=== PATIENT | female | born 1995 | race Caucasian/White ===

== ENCOUNTER 2023-05-15 10:26 | Outpatient (CLI) | payer OTHER, SELFPAY | END 2023-05-15 10:27 | disposition home or self-care (01) | PROVIDERS: PCP Family Medicine; Visit Provider Family Medicine | DX: E66.09 Other obesity due to excess calories (principal); Z13.6 Encounter for screening for cardiovascular disorders | CPT/HCPCS: 80048; 80061 ==

== ENCOUNTER 2023-07-09 17:20 | Outpatient (CLI) | payer OTHER, SELFPAY | END 2023-07-09 17:21 | disposition home or self-care (01) | LOC: NFLDUCREF 17:21 | PROVIDERS: PCP Family Medicine; Visit Provider Physician Assistant | DX: I10 Essential (primary) hypertension (principal); R21 Rash and other nonspecific skin eruption | CPT/HCPCS: 86140 ==

== ENCOUNTER 2023-07-24 12:05 | Outpatient (CLI) | payer OTHER, SELFPAY | END 2023-07-24 12:06 | disposition home or self-care (01) | LOC: FBOREF 12:06 | PROVIDERS: PCP Family Medicine; Visit Provider Family Medicine | DX: R21 Rash and other nonspecific skin eruption (principal) | CPT/HCPCS: 86039 ==

== ENCOUNTER 2024-04-15 15:39 | Outpatient (CLI) | payer OTHER, SELFPAY ==
--- NOTE | 2024-04-15 16:00 | CRLHL7_ITS ---
For Patients: As a result of the Century Cures Act, medical imaging exams and procedure reports are released immediately into your electronic medical record. You may view this report before your referring provider. If you have questions, please contact your health care provider. CLINICAL HISTORY: Menorrhagia TECHNIQUE: Real time, herbert scale images were acquired of the pelvis using a transabdominal and transvaginal approach. Color Doppler analysis was performed of the ovaries. FINDINGS: Uterus measures 7.4 x 4.3 x 5.2 centimeters endometrium measures 8 millimeters. Right ovary measures 3.8 x 2.5 x 2.9 centimeters left ovary measures 4.3 x 2 centimeters small hyperechoic area in the right ovary measuring 1.1 x 0.8 x 1 centimeters right ovarian probably a corpus luteum cyst measuring 2.3 x 1.5 x 1.9 centimeters. Small free fluid in the pelvis normal blood flow bilaterally. IMPRESSION: 1. 8 millimeter endometrium. 2. Small hyperechoic area in the right ovary as well as a probable corpus luteum cyst. Small amount of free fluid in the pelvis. Follow-up ultrasound could be considered in 8-12 weeks. Dictated by Joanne Vasques MD @ 04/16/2024 5:39:27 AM (Electronically Signed)
== END 2024-04-15 15:40 | disposition home or self-care (01) ==
PROVIDERS: PCP Family Medicine; Visit Provider Obstetrics & Gynecology
DX: N92.0 Excessive and frequent menstruation with regular cycle (principal); R93.89 Abnormal findings on diagnostic imaging of other specified body structures
CPT/HCPCS: 76830; 76856

== ENCOUNTER 2024-04-29 10:12 | Outpatient (CLI) | payer OTHER, SELFPAY | END 2024-04-29 10:13 | disposition home or self-care (01) | LOC: NFLDREF 04-30 10:59 | PROVIDERS: PCP Family Medicine; Referring Provider Family Medicine; Visit Provider Obstetrics & Gynecology | DX: R33.9 Retention of urine, unspecified (principal) | CPT/HCPCS: 87086 ==

== ENCOUNTER 2024-05-05 16:06 | Outpatient (CLI) | payer OTHER, SELFPAY | END 2024-05-05 16:07 | disposition home or self-care (01) | LOC: FBOREF 16:06 | PROVIDERS: PCP Family Medicine; Visit Provider Family Medicine | DX: I10 Essential (primary) hypertension (principal); N92.0 Excessive and frequent menstruation with regular cycle | CPT/HCPCS: 80048; 85025 ==

== ENCOUNTER 2024-05-20 07:22 | Day surgery (SDC) | payer OTHER, SELFPAY ==
[2024-05-20] VITALS (22 sets, daily range): BP systolic 93–135; BP diastolic 60–97; PULSE 53–96; RESP 12–18; TEMP 36.1–36.6; O2SAT 95–100
--- NOTE | 2024-05-20 08:06 | W.PM.H&PU ---
History & Physical Update History & Physical Update H&P Reviewed and patient assessed: No changes noted H&P Updates: Patient is currently on Day 3 of her menstrual cycle. Reassured patient this will not change our surgical plan. Reviewed consents with patient and spouse. All questions answered and patient comfortable with proceed with the planned procedures.
[2024-05-20 08:07] LABS: Basophils Absolute Auto 0.03 K/uL (0.00-0.30); Basophils Percent Auto 0.6 % (0.0-3.0); Eosinophils Absolute Auto 0.11 K/uL (0.00-0.50); Eosinophils Percent Auto 2.2 % (0.0-7.0); Hematocrit 40.7 % (33.0-51.0); Hemoglobin* 13.9 gm/dL (12.0-16.0); Lymphocytes Percent Auto 25.5 % (20-44); Mean Corpuscular HGB Conc 34 gm/dL (32-36); Mean Corpuscular Hemoglobin 30 pg (26-34); Mean Corpuscular Volume 87 fL (80-100); Monocytes Percent Auto 9.8 % (0.0-11.0); Neutrophils Absolute Auto 3.16 K/uL (1.7-7.0); Neutrophils Percent Auto 61.9 % (42.0-72.0); Platelet Count* 273 K/uL (140-440); RDW Coefficient of Variation % 13.1 % (11.5-15.5); Red Blood Count 4.67 m/uL (4.00-5.20)
[2024-05-20 08:09] LABS: Slide Review Reflex No
[2024-05-20] MEDS: LACTATED RINGERS 1000 ML 1,000 ML 100 ML IV (08:10)
[2024-05-20] MEDS: SODIUM CHLORIDE 0.9 % (FLUSH) 10 ML SYRINGE IVF (08:10)
[2024-05-20 08:22] LABS: Creatinine* 0.6 mg/dL (0.5-1.5); Estimated Glomerular Filt Rate 124 ml/min
[2024-05-20 08:24] LABS: Ur HCG Qualitative* Negative (Negative)
--- NOTE | 2024-05-20 08:36 | P.NB_ITS ---
Nerve Block Nerve Block Time Seen by Provider: 08:20 Date Seen: 05/20/24 Type of block requested by surgeon for post-operative analgesia: TAP Side: bilateral Time out performed: Yes Verification of patient name: Yes Verification of date of : Yes Site marking: site marked Name of person performing procedure: Bhanu Continuous monitoring Was continuous monitoring of O2 sat, B/P, fitness director, recorded every 15 minutes?: Yes Procedure Checklist: sterile prep, needles and gloves Ultrasound guided. Images saved: Yes Medications given in 5ml increments after negative aspiration: Marcaine %: 0.25 mL: 30 Needle gauge: 20 and Exparel mL: 10 Patient tolerated procedure well: Yes Additional comments: Needle noted between internal oblique and transversus abdominus. Local spread visualized Block Charges Block Charge (with Pro Fee): TAP Bilateral Use of Ultrasound Machine for Block: Yes- US Guidance/pain block
--- NOTE | 2024-05-20 08:37 | W.ANESCHARGE ---
Anesthesia Charges Start Date/Time Anesthesia Start Date: 05/20/24 Anesthesia Start Time: 08:08 Stop Date/Time Anesthesia Stop Date: 05/20/24 Anesthesia Stop Time: 11:40
[2024-05-20] MEDS: CEFAZOLIN 2 GM INJ IVP (08:47)
[2024-05-20] MEDS: BUPIVACAINE 0.25 %/EPI 1:200K 30 ml INJECTION (09:03)
--- NOTE | 2024-05-20 11:46 | W.ANESCHARGE ---
Anesthesia Charges Start Date/Time Anesthesia Start Date: 05/20/24 Anesthesia Start Time: 08:08 Stop Date/Time Anesthesia Stop Date: 05/20/24 Anesthesia Stop Time: 11:40
[2024-05-20] MEDS: fentaNYL 100 MCG/2 ML inj 50 MCG IVP ×3 (11:53→12:12)
--- NOTE | 2024-05-20 12:26 | P.PCNOB_ITS ---
Procedure Type of Hysterectomy: Total Laparoscopic Pre-op/Post-op diagnoses: Pre-Op/Post-Op Diagnoses Operation Date: 05/20/24 08:45 <No data on this case meets the specified criteria> Procedure: Procedures Operation Date: 05/20/24 08:45 Actual Procedure Side Surgeon p Laparoscopic Total Hysterectomy, Bilateral salpingectomy, cystoscopy Bilateral MD hannah Cunningham Transvaginal Tape/ Midurethral Sling Not Applicable Rasheeda Lee MD Automotive Light Mechanic: Lanie Joyner Estimated blood loss (mL): 50 Anesthesia Type: General Complications: none Fluids: crystalloid Urine output (mL): 300 Weight of Uterus: 3.951 oz Specimen: uterus, left tube and right tube Disposition: PACU Narrative: Findings: On exam under anesthesia: Normal appearing external genitalia. Normal appearing cervix. The uterus was anteverted, approximately 5 week size, mobile. No masses palpable. Adnexa without mass or fullness palpable. On laparoscopy: Uterus with possible endometriosis and vascular congestion on posterior uterine wall near the apex of the utero-sacral ligament. Normal appearing bilateral fallopian tubes and ovaries. Posterior cul-de-sac within normal limits. Normal appearing liver. Cystoscopy: The bladder was noted to be without defect and no evidence of injury, any sutures, or mesh in it's entirety. Normal urine flow was noted throu gh both ureteral orifices. Preoperative diagnosis: Bev is a 29-year-old 3 para 3 with heavy menstrual bleeding, dysmenorrhea, and stress urinary incontinence. Postoperative diagnosis: Same and possible endometriosis. Procedure: Bev was taken to the operating room where general anesthetic was found to be adequate. She was placed in the dorsal lithotomy position and an exam under anesthesia was performed with findings stated above. She was then prepped and draped in a normal sterile manner. A Martin catheter was placed. A bivalve speculum was placed in the vaginal canal. A long tenaculum clamp was placed on the anterior lip of the cervix, in the uterus sounded to 7 cm. A medium size VCare uterine manipulator was then placed. The tenaculum clamp and speculum were removed from the cervix. Attention was then turned to performing the laparoscopic portion of the procedure. All incisions were infiltrated with 1% lidocaine with epinephrine prior to incising the skin. A vertical, infraumbilical 5 mm incision was made. A 5 mm trocar was then placed under direct visualization. The abdomen was then insufflated with CO2 gas to a pressure of 15 mm of mercury. Two pelvic ports were then placed approximately 3-4 finger breaths medial to the ischial crests. The trocar in the RLQ = 5mm, LLq = 11mm. A 4th port was made in the patient's right lower quadrant, just superior medial to the left ASIS. A 5 mm Fios Kii port was inserted under direct visualization and without complication. The balloon on each of the 4 ports was inflated, holding each in place. These were placed under direct visualization. Attention was then turned to performing the hysterectomy. The left fallopian tube was grasped, dissected of the left ovary and removed with sequential pedicles using the dissecting, ligasure [place] tip dissecting forceps. Fallopian tube was removed in 2 pieces due to previous transection from tubal ligation. Filmy adhesions were taken down tethering the left fallopian tube to to the pelvic side wall. The left side of the hysterectomy was performed using the ligasure dissecting forceps. The 1st pedicles were starting with the broad ligament that was cauterized and and bisected. In sequence show pedicles were formed to divide the utero-ovarian ligament. Then sequential pedicles were made through the broad ligament. The posterior leaf of the broad ligament was then divided and sequential pedicles carried down to the level of the VCare cup. The anterior leaf of the broad ligament was then divided down to the level of the anterior aspect of the VCare cup and a bladder flap created. Lysis of adhesion performed to take the down the bladder flap. The uterine vessels were then skeletonized. The uterine vessels were then cauterized and divided. Then excess tissue was cleared over the top of the VCare cup using the dissecting forceps. The right salpingectomy and right side of the hysterectomy were then performed in a similar manner. The Ligasure Blazentlab pen with the spatula attachment was then used to perform the colpotomy incising around the VCare cup. The uterus was removed and the fundus placed in the vaginal canal to maintain insufflation. Patient was noted to have a small 1 cm hematoma forming on the left vaginal cuff corner. This was coagulated with the LigaSure. The vaginal cuff was then reapproximated using 2-0 V lock suture in a running manner. All the pedicles and vaginal cuff were then closely visualized and hemostasis obtained with bipolar cautery using the LigaSure dissecting forceps or the Valleylab pen with the spatula. Excellent hemostasis noted. The the uterus was removed from the vaginal canal and sent to pathology. The Martin catheter was briefly removed. A diagnostic cystoscopy was performed using normal saline as the insufflation medium. Findings noted from above. Fluorescein IV was given intraoperatively to visualize the urine more easily. Martin catheter was then replaced. Attention was then returned to the abdomen where hemostasis was verified. The CO2 pressure decreased to 8mmHG and hemostasis verified. The fascia in the LLQ incision was approximated with 0-Vicryl suture using the Domingo Thomasen fascial closure device. This was closed under direct visualization with the laparoscope. 3 trocars were removed under direct visualization. Umbilical port left in place for visualization of the abdomen after the retropubic sling placement. CO2 gas was allowed to escape the infraumbilical port prior to its removal. Attention was then turned towards the midurethral sling placement. The mons was marked in the midline with a marker, extending from just above the clitoral benton in the midline to just above the pubic symphysis. A chuckie was made approximately 2 cm just to the right and to the left of the midline, just over the pubic bone. 30 mL of saline was injected into the retropubic space just behind the pubic bone bilaterally. A weighted speculum was placed in the vagina. The anterior vaginal wall was grasped in the midline 1 cm beneath the urethral meatus with an Allis clamp, and a 2nd Allis clamp was placed at the urethrovesical junction. The intervening anterior vaginal wall was infiltrated with Marcaine with dilute epinephrine, carrying this infiltration to the pubic bone bilaterally. A 1.5 cm incision was made in the anterior vaginal wall, and Metzenbaum scissors were used to dissect the subepithelial tunnel from that incision to the pubic bone, both to the right and the left of the urethra. The Martin catheter was removed. A rigid catheter guide was placed inside a 16 Uzbek catheter, this was inserted into the bladder. Attention was first turned to placement of the right trocar. The trocar was placed within the blue plastic sheath. The trocar tip was inserted through the vaginal subepithelial tunnel on the patient's right side, and slowly guided upwards just behind the posterior aspect of the pubic bone, until the tip of the trocar was guided through the stab incision on the patient's right side. The bladder was deviated to the patient's left with the rigid catheter guide during this time. The plastic sheath was disconnected from the trocar, and the tip was grasped with hemostat. Cystoscopy performed. No injury noted with right sided insertion. Bladder wall intact and trocar easily rolls across. The trocar was then placed within the blue plastic sheath at the other end of the mesh. The trocar tip was inserted through the vaginal subepithelial tunnel on the patient's left side, and slowly guided upward just behind is posterior aspect of the pubic bone, until the tip of the trocar was guided through the stab incision on the patient's left side. The bladder was deviated to the patient's right with the rigid catheter guide during this time. The plastic sheath was again disconnected from the trocar, and the tip was grasped with a hemostat. Cystoscopy was then performed, revealing no injury to the bladder mucosa and the plastic sheaths were found to be freely movable outside the bladder dome. Martin catheter was again inserted to be retained until removal on POD#1. The blue plastic sheaths were pulled through the stab incisions just above the pubic bone, and the mesh was tensioned over a #8 Hegar dilator. The vaginal incision was closed with a running, locked stitch of 2 0 Vicryl. The mesh was trimmed to beneath the skin on her abdomen, and the sites were closed with surgical glue. A final diagnostic laparoscopy was performed to verify that the sling had remained completely pre-peritoneal. Insufflation released and umbilical port r emoved. All skin incisions were re-approximated using 4-0 Monocryl in a running subcuticular manner, Exophin skin adhesive gel and adhesive bandages placed. The patient tolerated this procedure well. Sponge, lap and instrument counts were correct x2 at the end of the procedure and the patient was taken to the recovery area in stable condition. The patient received 2gm IV Ancef prior to the start of the procedure.
[2024-05-20] MEDS: ACETAMINOPHEN 325 MG TABLET 650 MG PO ×2 (14:11→19:22)
[2024-05-20] MEDS: OXYCODONE 5 MG TABLET PO ×3 (15:13→23:29)
[2024-05-20] MEDS: DOCUSATE SODIUM 100 MG CAPSULE PO (17:26)
[2024-05-20] MEDS: IBUPROFEN 600 MG TABLET PO (23:28)
[2024-05-21 03:00] VITALS: BP 105/65; PULSE 69; RESP 16; O2SAT 99
[2024-05-21] MEDS: OXYCODONE 5 MG TABLET PO ×4 (03:21→14:12)
[2024-05-21] MEDS: IBUPROFEN 600 MG TABLET PO ×2 (05:47→10:35)
--- NOTE | 2024-05-21 06:43 | PC.NURSE ---
End of shift report [id number]: Pleasant and cooperative with cares. Pain to low abdomen well managed with current regimen. Lap sites clean, dry and intact. Small amount of bloody, vaginal drainage. Tolerating food and fluids without and nausea or vomiting. Martin catheter backfilled, patient did not tolerate full amount, voided full amount of fluid instilled. Transfers with min-moderate assist of 1, abdominal binder used with transfers and for comfort, patient states that compression feels better than without. Ice pack used throughout the night to opsite.
[2024-05-21 06:53] LABS: Hemoglobin* 12.7 gm/dL (12.0-16.0)
[2024-05-21 07:11] LABS: Creatinine* 0.8 mg/dL (0.5-1.5); Estimated Glomerular Filt Rate 102 ml/min
[2024-05-21 08:25] VITALS: BP 117/72; PULSE 72; RESP 16; RESP 18; TEMP 36.5; O2SAT 97
[2024-05-21] MEDS: ACETAMINOPHEN 325 MG TABLET 650 MG PO ×2 (08:34→12:37)
[2024-05-21] MEDS: HYDROmorphone 0.5 mg/0.5 ml inj IVP (09:04)
[2024-05-21] MEDS: DOCUSATE SODIUM 100 MG CAPSULE PO (10:35)
[2024-05-21 10:38] VITALS: BP 103/65; PULSE 68; RESP 18; O2SAT 98
--- NOTE | 2024-05-21 12:15 | PM.GYNDS1 ---
DS: Providers Provider Time Seen by Provider: 09:00 Date Seen: 05/21/24 Primary care physician: Kvng Garvin MD Attending Physician on discharge: Rasheeda Lee MD Date of Discharge: 05/21/24 DS: Diagnosis Discharge Diagnosis (1) Primary stress urinary incontinence: Status: Acute (2) PCOS (polycystic ovarian syndrome): Status: Acute (3) Menorrhagia: Status: Acute (4) Dysmenorrhea: Status: Acute PATIENT FINANCIAL SERVICES COORDINATOR-Discharge Summary Hospital Course Hospital Course Narrative: Patient is a 29 year old admitted on 05/20/24 for scheduled total laparoscopic hysterectomy, bilateral salpingectomy, mid urethral sling, cystoscopy. Indication for surgery: Heavy menstrual bleeding, dysmenorrhea, endometriosis, primary stress urinary incontinence. Intraoperative findings: On exam under anesthesia: Normal appearing external genitalia. Normal appearing cervix. The uterus was anteverted, approximately 5 week size, mobile. No masses palpable. Adnexa without mass or fullness palpable. On laparoscopy: Uterus with possible endometriosis and vascular congestion on posterior uterine wall near the apex of the utero-sacral ligament. Normal appearing bilateral fallopian tubes and ovaries. Posterior cul-de-sac within normal limits. Normal appearing liver. Cystoscopy: The bladder was noted to be without defect and no evidence of injury, any sutures, or mesh in it's entirety. Normal urine flow was noted through both ureteral orifices. She had an uncomplicated surgery. Postoperative course has been uneventful. Vitals have been stable. She has remained afebrile. Today, on postoperative day 1, she reports the pain was uncontrolled on PO pain meds. She received a push of IV Dilaudid this AM. However, after ambulating and passing gas, it was significantly improved. She has history of constipation. We discussed bowel regimen while on narcotic. She has been able to ambulate without difficulty. She is tolerating regular diet. She is passing flatus. Milligan catheter has been removed and she passed her voiding trail (void 300 cc). Currently, void freely since then without difficulty. We reviewed postoperative expectations. Hgb 12.7 today. Time Spent with Patient Time attestation: Total time spent providing and/or coordinating discharge services: Time spent: Less than 30 minutes PATIENT FINANCIAL SERVICES COORDINATOR - Exam Physical Exam: Vital signs: Temp Pulse Resp BP Pulse Ox O2 Del Method 97.7 F 68 18 103/65 98 Room Air 05/21/24 08:25 05/21/24 10:38 05/21/24 10:38 05/21/24 10:38 05/21/24 10:38 05/21/24 10:38 Narrative: Physical exam: General: No acute distress Psych: Alert and oriented x4, full affect HEENT: Normocephalic, atraumatic Heart: Regular rate and rhythm, no murmur rub or gallop Lungs: Clear to auscultation bilaterally Abdomen: Normoactive bowel sounds, soft, mild tenderness in lower quadrant. No rebound, or guarding Incision: Appropriately tender to palpation. Clean, dry, and intact. No erythema, induration, or abnormal discharge/breakdown (4 port sites and 2 puncture site from TVT trocar). Skin: No lesions or rashes Lower extremities: No edema or erythema Pelvic exam: Scant blood on pad. PATIENT FINANCIAL SERVICES COORDINATOR - DS: Data Data Completed and Pending Labs on day of discharge: Labs from last 24 hours 05/21/24 06:44 Hgb 12.7 Creatinine 0.8 Estimated GFR 102 Procedures Procedures: Procedures Operation Date: 05/20/24 08:45 Actual Procedure Side Surgeon p Laparoscopic Total Hysterectomy, Bilateral salpingectomy, cystoscopy Bilateral Rasheeda Lee MD s Transvaginal Tape Sling Not Applicable Rasheeda Lee MD Complications: none Discharge Plan Discharge Disposition: Home w/ Parent or Adult Discharging Surgeon: Rasheeda Lee Follow-Up Appointment: Scheduled for 06/01/[address] Lee and 07/03/[address] Joyner Prescriptions: New sennosides [Senna Lax] 8.6 mg Tablet 8.6 mg PO BID 30 Days Qty: 60 0RF ibuprofen 600 mg Tablet 600 mg PO Q6H PRN (Reason: pain) 30 Days Qty: 90 0RF oxycodone 5 mg Tablet 5 mg PO Q6H PRN (Reason: Moderate Pain) 14 Days Qty: 20 0RF simethicone 80 mg Tablet,Chewable 160 mg PO Q4H PRN (Reason: gas) 30 Days Qty: 60 0RF acetaminophen 500 mg tablet 1,000 mg PO Q6H PRN (Reason: pain) Qty: 90 0RF polyethylene glycol 3350 [Miralax] 17 gram/dose powder 17 g PO DAILY Qty: 119 0RF Continued albuterol sulfate 90 mcg/actuation HFA aerosol inhaler 2 puff inhalation Q4-6H PRN Discharge Diet: Regular Patient Instructions: Deep Sedation (DC), Laparoscopic Hysterectomy (DC), Bladder Sling for Women (DC) Additional Instructions: LAPAROSCOPY POSTOPERATIVE INSTRUCTIONS ACTIVITY No heavy lifting/pushing/pulling for 4-6 weeks. Do not lift anything more than about 15 lbs (such as laundry, groceries, children, pets), vacuum, push heavy doors or grocery carts, etc. You may climb stairs as tolerated. Do not put anything in the vagina for 6-8 weeks after surgery unless otherwise instructed by your doctor (including tampons, douching, sexual intercourse, etc). No driving for about 2 weeks after surgery, while you are taking narcotic pain medication, or until you feel that you are ready. Practice checking your blind spot and stepping hard on the brake. Avoid sitting or lying in bed for more than 2 hours at a time while you are awake to reduce your risk of blood clots. You may return to work when directed by your physician. Please contact your doctor if you need any return to work letters or medical leave paperwork to be completed. WOUND CARE You will have 4 small incisions on your abdomen. There will be dissolvable stitches under your skin that do not need to be removed. You have two additional half centimeter incision near your pubic symphysis. These are just covered with surgical glue. Shower daily after surgery. Clean your incision with mild antibacterial soap and water. Pat your incision dry with a clean towel. No tub baths until wound is completely healed. Wash your hands frequently, especially before touching your incision, changing any dressings, after using the restroom, and before eating. PAIN MANAGEMENT Take your oral pain medication as needed. You should be taking Ibuprofen 600mg every 6 hours with 1000 mg of Tylenol every 6 hours. You can take these together every six hours or alternate them every 3 hours. You should then take the oxycodone as needed if you have breakthrough pain on top of the Tylenol and Ibuprofen. Some pain medications can cause constipation so you should take a stool softener (i.e. colace/senna) while you are on these medications. You may also take milk of magnesia or Miralax for constipation. WHAT TO EXPECT AT HOME Recovery from surgery is generally 2-4 weeks, but sometimes longer for more strenuous activity. It is normal to be very tired during this time. It is normal to have some drainage or a small amount of vaginal bleeding after surgery which may last up to 6 weeks. You may go home with a milligan catheter in your bladder. If so, you will need to follow up for a nurse visit in 7-10 days for removal. You will most likely experience gas pain, abdominal swelling, or shoulder pain for 24-72 hours after surgery. This is from the carbon dioxide gas put into your abdomen to better visualize your organs. A warm shower, heating pad, and/or walking may help. WHEN TO CALL YOUR DOCTOR : Fever (>100.4?F or 38.0?C) or chills. Incision problems such as redness, warmth, swelling, or foul-smelling drainage. Severe nausea or persistent vomiting. Bright red vaginal bleeding (soaking >1 pad/hour) or foul-smelling vaginal drainage. Severe pain not relieved with pain medication. Pain and swelling in your legs, especially if it is only on one side and not the other. Pain with urination, cloudy urine, or foul-smelling urine. Or if you have any other problems or questions. CALL 911 OR GO TO THE EMERGENCY ROOM IF YOU HAVE: Any shortness of breath, difficulty breathing, or chest pain. Follow-up: Kvng Garvin MD [Primary Care Provider] - Discharge Orders: Discharge Order (Routine); Ordered 05/21/24 Ordered By: Rasheeda Lee
--- NOTE | 2024-05-21 14:43 | PC.NURSE ---
Nursing Care Hours: [id number] Pt this shift alert and oriented. Fatigued and anxious r/t pain. Pain rated 5-8/10. 5 at rest, 8 with movement. Prior to discharge, pain rated 7/10 at rest. VSS, abdomen soft, BS active. Pt reports passing gas and voiding without difficulty. Encouraged to use ice and walk halls. Pain meds given per eMAR. One time dose Dilaudid given this AM d/t pt in between doses and was shivering d/t pain, denied feeling cold. OBGYN aware of symptoms. Abdominal binder also being used. Stool softener given as well. DC instructions went over with pt and spouse. Grounds Manager highlighted when last pain meds given, and wrote down when next pain meds due. Grounds Manager pointed out number to call the hospital if pt were to have any concerns while at home. Encouraged IS use. Pt began shivering while getting up to w/c at discharge. Pain med had just been given.
== END 2024-05-21 14:35 | disposition home or self-care (01) ==
LOC: OR 07:23 → MEDSURG 07:25
PROVIDERS: PCP Family Medicine; Visit Provider Obstetrics & Gynecology
PROC: 0UT94ZZ Resection of Uterus, Percutaneous Endoscopic Approach (ICD-10-PCS; CPT 58571; principal; 2024-05-20 08:45)
PROC: (CPT 57288; 2024-05-20 08:45)
DX: N92.0 Excessive and frequent menstruation with regular cycle (principal); N94.6 Dysmenorrhea, unspecified; N39.3 Stress incontinence (female) (male); G89.18 Other acute postprocedural pain; E28.2 Polycystic ovarian syndrome; I10 Essential (primary) hypertension; E66.09 Other obesity due to excess calories
CPT/HCPCS: 58571; 57288; 00840; 36415; 64488; 76942; 81025; 82565; 85018; 85025; 86850; 86900; 86901; 88307; A4344; A9270; C1771; C9290; J0665; J0690; J1100; J1171; J1630; J1885; J2405; J2704; J2710; J3010; J3490; J7120

== ENCOUNTER 2024-05-27 13:00 | Outpatient (CLI) | payer OTHER, SELFPAY | END 2024-05-27 13:01 | disposition home or self-care (01) | LOC: NFLDREF 05-30 16:30 | PROVIDERS: PCP Family Medicine; Referring Provider Family Medicine; Visit Provider Obstetrics & Gynecology | DX: R30.0 Dysuria (principal) | CPT/HCPCS: 87086 ==